=== PATIENT | female | born 1975 | race Caucasian/White ===

== ENCOUNTER 2016-12-21 02:39 | Emergency (ER) | payer SELFPAY ==
[2016-12-21] MEDS ORDERED: DIAZEPAM INJ 10 MG/2 ML DISP.SYRIN IV ONE (03:02)
[2016-12-21] MEDS ORDERED: NORMAL SALINE 1000 ML 1,000 ML IV ONE (03:03)
--- NOTE | 2016-12-21 03:07 | ER Document Report ---
ED General - General TRAVEL OUTSIDE OF THE [place] IN LAST 30 DAYS: No <HUYEN NATARAJAN - Last Filed: 12/21/16 05:42> <YOVANY AMAYA - Last Filed: 12/21/16 10:13> - General Chief Complaint: Probable Seizure Stated Complaint: POSSIBLE SEIZURE Notes: Patient is a 41-year-old female who presents with complaints of possible seizure. Patient says she is in the bathroom and went onto the floor. She she thinks that she had a seizure. Patient says she felt just like she did back in August when she had a fever after her call withdrawal. She does not have a seizure disorder. She is prescribed Ativan. She's on no seizure medications. Patient says that she does go to [facility]. Patient says she was doing well until this weekend when she lost her best friend who of a heroin overdose. She says she drank this weekend. Today she only had 2 glasses of wine. She thinks she may have had a seizure due to withdrawal. No loss of bowel control. Patient thinks she bit her tongue. Patient is currently asking for Ativan. (HUYEN NATARAJAN) - Related Data Allergies/Adverse Reactions: No Known Allergies Allergy (Verified 12/21/16 05:15) Past Medical History - Social History Smoking Status: Unknown if Ever Smoked Frequency of alcohol use: Heavy Drug Abuse: None Family History: None, CAD, Other - Alcoholism Pulmonary Medical History: Denies: Hx Asthma, Hx Bronchitis Endocrine Medical History: Denies: Hx Diabetes Mellitus Type 1 Psychiatric Medical History: Reports: Hx Anxiety - Alcoholism, Hx Depression - with anxiety - Immunizations Hx Diphtheria, Pertussis, Tetanus Vaccination: Yes <HUYEN NATARAJAN - Last Filed: 12/21/16 05:42> Review of Systems <HUYEN NATARAJAN - Last Filed: 12/21/16 05:42> <YOVANY AMAYA - Last Filed: 12/21/16 10:13> - Review of Systems Notes: My Normal Review Basic REVIEW OF SYSTEMS: CONSTITUTIONAL : Denies fever, chills, or sweats. Denies recent illness. EENT: Denies eye, ear, throat, or mouth pain or symptoms. Denies nasal or sinus congestion. CARDIOVASCULAR: Denies chest pain. RESPIRATORY: Denies cough, cold, or chest congestion. Denies shortness of breath, difficulty breathing, or wheezing. GASTROINTESTINAL: Denies abdominal pain. Denies nausea, vomiting, or diarrhea. Denies constipation. Last BM: MUSCULOSKELETAL: Denies neck or back pain or joint pain or swelling. SKIN: Denies rash or skin lesions. HEMATOLOGIC : Denies easy bruising or bleeding. NEUROLOGICAL: Possible seizure PSYCHIATRIC: Admits to anxiety. ALL OTHER SYSTEMS REVIEWED AND NEGATIVE. (HUYEN NATARAJAN) Physical Exam <HUYEN NATARAJAN - Last Filed: 12/21/16 05:42> <YOVANY AMAYA - Last Filed: 12/21/16 10:13> - Vital signs Vitals: Temp 98 F 12/21/16 02:39 - Notes Notes: General Appearance: Well nourished, alert, cooperative, no acute distress, no obvious discomfort. Very anxious. Vitals: reviewed, See vital signs table. Head: no swelling or tenderness to the head Eyes: PERRL, EOMI, Conjuctiva clear Mouth: No decreasd moisture. I do not see a bite saundra on her tongue. Neck: Supple, no neck tenderness, No thyromegaly Lungs: No wheezing, No rales, No rhonci, No accessory muscle use, good air exchange bilaterally. Heart: Tachycardic rate, Regular rythm, No murmur, no rub Abdomen: Normal BS, soft, No rigidity, No abdominal tenderness, No guarding, no rebound, no abdominal masses, no organomegaly Extremities: strength 5/5 in all extremities, good pulses in all extremities, no swelling or tenderness in the extremities, no edema. Skin: warm, dry, appropriate color, no rash Neuro: speech clear, oriented x 3, normal affect, responds appropriately to questions. Cranial nerves 2-12 are intact. Distal sensation intact. Patient moves all extremities without difficulty. (HUYEN NATARAJAN) Course - Laboratory Result Diagrams: 12/21/16 03:08 12/21/16 03:08 <HUYEN NATARAJAN - Last Filed: 12/21/16 05:42> - Laboratory Result Diagrams: 12/21/16 03:08 12/21/16 03:08 <YOVANY AMAYA - Last Filed: 12/21/16 10:13> - Re-evaluation Re-evalutation: 12/21/16 05:42 Patient's alcohol level came back very high. She obviously is not going for a new drop. Things unlike she had a seizure. She had no evidence of tongue biting on exam. No loss urinary retention. No action witnessed a seizure. Patient was apparently awake during part of seizure quadrant herself which would be typical. Paramedics arrived she was never postictal. She continues as for Ativan. I informed her that she would not begin Ativan as she is not having withdrawal. She is anxious. I will do gabapentin to help prevent her from going into withdrawal. I think this is more appropriate for her. We will continue monitor the patient until she is clinically sober to be discharged home. She'll be discharged on a gabapentin taper. Patient will be encouraged return to ER immediately if she has any seizures, surgery depression or suicidal thoughts, or if she has any further concerns. (HUYEN NATARAJAN) 12/21/16 10:11 Care similar this physician at shift change had a 600. Patient on examination at 10 AM reports feeling much better she is ambulated in the department without assistance without difficulty. On examination chest is clear to auscultation bilateral breath sounds equal heart regular rate and rhythm without murmur abdomen soft and nontender external is Cayden plus pulses neuro patient awake alert mentating clearly answers questions appropriately speech is clear public speaker strength 5 out of 5 equal both upper tremors motor function 5 out of 5 equal both lower extremities. Patient is safe for discharge with outpatient follow- up and gabapentin as previously described (YOVANY AMAYA) - Vital Signs Vital signs: Temp Pulse Resp BP Pulse Ox 98 F 13 114/80 96 12/21/16 02:39 12/21/16 03:08 12/21/16 08:00 12/21/16 08:00 - Laboratory Laboratory results interpreted by me: 12/21/16 12/21/16 03:08 03:08 WBC 10.8 H RDW 15.6 H Absolute Lymphocytes 4.8 H Creatinine 0.49 L AST 89 H Total Protein 8.3 H Serum Alcohol 353 H* Discharge <HUYEN NATARAJAN - Last Filed: 12/21/16 05:42> <YOVANY AMAYA - Last Filed: 12/21/16 10:13> - Discharge Clinical Impression: Alcohol abuse Condition: Stable Disposition: HOME, SELF-CARE Additional Instructions: PLease take the Gabapentin as prescribed to help prevent withdrawls. Please return to the ER if you feel that you are having withdrawl symptoms despite taking the Gabapentin. PLease return to [facility] ER immediately if you are having thoughts of suicide or worsening depression. Please follow up with your doctor in 2 days for reevaluation. Please continue to follow with AA for help with alcohol use. Prescriptions: Gabapentin 300 mg PO ASDIR PRN #24 capsule PRN Reason: Referrals: [facility] [Provider Group] - Follow up in 3-5 days
[2016-12-21 03:17] LABS: ABSOLUTE LYMPHOCYTES (AUTO) 4.8 10^3/uL (0.5-4.7); ABSOLUTE MONOCYTES (AUTO) 0.6 10^3/uL (0.1-1.4); ABSOLUTE NEUT (AUTO) 5.4 10^3/uL (1.7-8.2); BASOPHILS % (AUTO) 0.4 % (0-2); EOSINOPHILS % (AUTO) 0.3 % (0-6); HEMOGLOBIN 13.8 g/dL (12.0-15.5); HGB HCT DIFFERENCE 1.4; LYMPHOCYTES % (AUTO) 43.9 % (13-45); MEAN CORPUSCULAR HEMOGLOBIN 31.1 pg (27.0-33.4); MEAN CORPUSCULAR HGB CONC 34.6 g/dL (32.0-36.0); MEAN CORPUSCULAR VOLUME 90 fl (80-97); MONOCYTES % (AUTO) 5.4 % (3-13); RED BLOOD COUNT 4.45 10^6/uL (3.72-5.28); RED CELL DISTRIBUTION WIDTH 15.6 % (11.5-14.0); WHITE BLOOD COUNT 10.8 10^3/uL (4.0-10.5)
[2016-12-21 03:38] LABS: ALANINE AMINOTRANSFERASE 36 U/L (9-52); ALBUMIN 4.4 g/dL (3.5-5.0); ALKALINE PHOSPHATASE 115 U/L (38-126); ANION GAP 19 (5-19); ASPARTATE AMINO TRANSFERASE 89 U/L (14-36); BILIRUBIN,DIRECT 0.4 mg/dL (0.0-0.4); BILIRUBIN,TOTAL 0.7 mg/dL (0.2-1.3); BLOOD UREA NITROGEN 13 mg/dL (7-20); CALCIUM 8.5 mg/dL (8.4-10.2); CARBON DIOXIDE 25 mmol/L (22-30); CHLORIDE 101 mmol/L (98-107); CREATININE RESULT 0.49 mg/dL (0.52-1.25); GLUCOSE 98 mg/dL (75-110); MAGNESIUM 2.2 mg/dL (1.6-2.3); POTASSIUM 4.3 mmol/L (3.6-5.0); SODIUM 144.8 mmol/L (137-145); TOTAL PROTEIN 8.3 g/dL (6.3-8.2)
[2016-12-21] MEDS ORDERED: GABAPENTIN 300 MG CAPSULE PO ONE ×2 (03:53→11:45)
[2016-12-21 04:10] LABS: ALCOHOL 353 mg/dL (NONE DETECTED)
[2016-12-21 10:29] VITALS: BP 130/91
[2016-12-21] MEDS ORDERED: GABAPENTIN 300 MG CAPSULE PO SCH ×2 (10:45→11:45)
== END 2016-12-21 10:29 | disposition home or self-care (01) ==
LOC: ER 02:39
DX: F10.10 Alcohol abuse, uncomplicated (principal)
CPT/HCPCS: 99284; 96374; 36415; 80307; 83735; 85025; 80053; 70450; J3360; J7030

== ENCOUNTER 2018-07-27 02:21 | Emergency (ER) | payer SELFPAY ==
--- NOTE | 2018-07-27 02:52 | ER Document Report ---
ED General - General Stated Complaint: IVC WITH PAPERS Time Seen by Provider: 07/27/18 02:34 Notes: Patient is a 43-year-old female is brought in after being placed on IVC paperwork. Current IVC paperwork she texted her boyfriend saying that she was going to kill herself. She then apparently also mentioned that she was going to have her boyfriend killed. Patient herself she says that she gets very upset and has a stressful time and try to manage her stress reaction whenever her boyfriend has a PTSD episode. She denies being suicidal making suicidal threats. She also denies any alcohol use at all tonight however smells like alcohol. 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 TRAVEL OUTSIDE OF THE [place] IN LAST 30 DAYS: No - Related Data Allergies/Adverse Reactions: No Known Allergies Allergy (Verified 03/01/18 06:03) Past Medical History - Social History Smoking Status: Unknown if Ever Smoked Frequency of alcohol use: recent history of heavy alcohol use. Drug Abuse: None Family History: CAD, Other - Alcoholism Pulmonary Medical History: Denies: Hx Asthma, Hx Bronchitis Neurological Medical History: Denies: Hx Seizures Endocrine Medical History: Denies: Hx Diabetes Mellitus Type 1, Hx Hyperthyroidism, Hx Hypothyroidism Renal/ Medical History: Denies: Hx Peritoneal Dialysis GI Medical History: Denies: Hx Crohn's Disease, Hx Ulcerative Colitis Musculoskeletal Medical History: Denies Hx Fibromyalgia, Denies Hx Gout Skin Medical History: Denies Hx Psoriasis Psychiatric Medical History: Reports: Hx Anxiety - Alcoholism, Hx Depression - with anxiety Traumatic Medical History: Denies: Hx Gunshot Wound, Hx Traumatic Brain Injury Infectious Medical History: Denies: Hx C-Diff - Immunizations Hx Diphtheria, Pertussis, Tetanus Vaccination: Yes Review of Systems - Review of Systems Notes: My Normal Review Basic REVIEW OF SYSTEMS: CONSTITUTIONAL : Denies fever, chills, or sweats. Denies recent illness. EENT: Denies eye, ear, throat, or mouth pain or symptoms. Denies nasal or sinus congestion. CARDIOVASCULAR: Denies chest pain. RESPIRATORY: Denies cough, cold, or chest congestion. Denies shortness of breath, difficulty breathing, or wheezing. GASTROINTESTINAL: Denies abdominal pain. Denies nausea, vomiting, or diarrhea. Denies constipation. Last BM: MUSCULOSKELETAL: Denies neck or back pain or joint pain or swelling. SKIN: Denies rash or skin lesions. NEUROLOGICAL: Denies altered mental status or loss of consciousness. Denies headache. Denies weakness or paralysis or loss of use of either side. Denies problems with gait or speech. Denies sensory or motor loss. PSYCHIATRIC: Anxiety. Allergic recent suicide threat. ALL OTHER SYSTEMS REVIEWED AND NEGATIVE. Physical Exam - Vital signs Vitals: Temp Pulse Resp BP Pulse Ox 97.5 F 86 20 99/61 L 95 07/27/18 02:30 07/27/18 02:30 07/27/18 02:30 07/27/18 02:30 07/27/18 02:30 - Notes Notes: General Appearance: Well nourished, alert, cooperative, no acute distress, no obvious discomfort. Vitals: reviewed, See vital signs table. Head: no swelling or tenderness to the head Eyes: PERRL, EOMI, Conjuctiva clear Lungs: No wheezing, No rales, No rhonci, No accessory muscle use, good air exchange bilaterally. Heart: Normal rate, Regular rythm, No murmur, no rub Abdomen: Normal BS, soft, No rigidity, No abdominal tenderness, No guarding, no rebound, no abdominal masses, no organomegaly Extremities: strength 5/5 in all extremities, good pulses in all extremities, no swelling or tenderness in the extremities, no edema. Skin: warm, dry, appropriate color, no rash Neuro: speech clear, oriented x 3, hyper and almost manic type of affect, responds appropriately to most questions. Cranial nerves II through XII are intact. Patient moves all extremities without difficulty. Course - Re-evaluation Re-evalutation: 07/27/18 06:45 Patient denies suicidal thoughts however she also was truthful about certain things such as saying that she drank no alcohol tonight. Obviously that is not true being that her alcohol level is 407. Patient will be medically stable for psychiatric transfer if necessary once her alcohol level is down to normal and she is showing no signs of withdrawal. Patient will have to be watched closely for possible signs of withdrawal being the suspected that she Regular basis. Mental health has been consulted for evaluation. Dictation of this chart was performed using voice recognition software; therefore, there may be some unintended grammatical errors. - Vital Signs Vital signs: Temp Pulse Resp BP Pulse Ox 97.5 F 86 20 99/61 L 95 07/27/18 02:30 07/27/18 02:30 07/27/18 02:30 07/27/18 02:30 07/27/18 02:30 - Laboratory Result Diagrams: 07/27/18 02:40 07/27/18 02:40 Laboratory results interpreted by me: 07/27/18 07/27/18 02:40 02:40 WBC 12.1 H RDW 14.5 H Abs Lymphs (Manual) 5.7 H Sodium 147.7 H Salicylates < 1.0 L Acetaminophen < 10 L Serum Alcohol 407 H* - EKG Interpretation by Me Additional EKG results interpreted by me: 07/27/18 02:45 EKG is reviewed and interpreted by me. EKG shows sinus tachycardia with a rate of [address] segment elevation or depression. No ischemic T wave inversions. TN interval, QRS duration, QT intervals are within normal range. Old EKG for comparison is from March 01, 2018.
[2018-07-27 03:02] LABS: HEMATOCRIT 38.7 % (36.0-47.0); HEMOGLOBIN 13.3 g/dL (12.0-15.5); MEAN CORPUSCULAR HEMOGLOBIN 31.8 pg (27.0-33.4); MEAN CORPUSCULAR HGB CONC 34.3 g/dL (32.0-36.0); MEAN CORPUSCULAR VOLUME 93 fl (80-97); PLATELET COUNT 322 10^3/uL (150-450); RED BLOOD COUNT 4.17 10^6/uL (3.72-5.28); RED CELL DISTRIBUTION WIDTH 14.5 % (11.5-14.0); WHITE BLOOD COUNT 12.1 10^3/uL (4.0-10.5)
[2018-07-27 03:22] LABS: ALANINE AMINOTRANSFERASE 16 U/L (9-52); ALBUMIN 4.7 g/dL (3.5-5.0); ALKALINE PHOSPHATASE 58 U/L (38-126); ANION GAP 18 (5-19); ASPARTATE AMINO TRANSFERASE 25 U/L (14-36); BILIRUBIN,DIRECT 0.2 mg/dL (0.0-0.4); BILIRUBIN,TOTAL 0.2 mg/dL (0.2-1.3); BLOOD UREA NITROGEN 14 mg/dL (7-20); CARBON DIOXIDE 24 mmol/L (22-30); CHLORIDE 106 mmol/L (98-107); GLUCOSE 95 mg/dL (75-110); POTASSIUM 4.4 mmol/L (3.6-5.0); SODIUM 147.7 mmol/L (137-145); TOTAL PROTEIN 7.6 g/dL (6.3-8.2)
[2018-07-27 03:26] LABS: ABSOLUTE LYMPHOCYTES# (MANUAL) 5.7 10^3/uL (0.5-4.7); ABSOLUTE MONOCYTES # (MANUAL) 0.5 10^3/uL (0.1-1.4); ABSOLUTE NEUTROPHILS# (MANUAL) 5.8 10^3/uL (1.7-8.2); BASOPHILS % (MANUAL) 0 % (0-2); EOSINOPHILS % (MANUAL) 1 % (0-6); LYMPHOCYTES % (MANUAL) 43 % (13-45); MONOCYTES % (MANUAL) 4 % (3-13); SEGMENTED NEUTROPHILS % (MAN) 48 % (42-78); TOTAL CELLS COUNTED 100
[2018-07-27 03:27] LABS: PLATELET COMMENT ADEQUATE; RBC MORPHOLOGY COMMENT NORMO-CYTIC/CHROMIC
[2018-07-27 03:32] LABS: ACETAMINOPHEN < 10 ug/mL (10-30); SALICYLATE < 1.0 mg/dL (2.0-20.0)
[2018-07-27 03:34] LABS: ALCOHOL 407 mg/dL (NONE DETECTED)
--- NOTE | 2018-07-27 07:21 | EKG REPORT ---
SEVERITY:- OTHERWISE NORMAL ECG - SINUS TACHYCARDIA : Confirmed by: Ines Amanda 27-Jul-2018 07:20:19
[2018-07-27 07:54] VITALS: BP 110/69
[2018-07-27 07:56] LABS: APPEARANCE,URINE CLEAR; BILIRUBIN,URINE NEGATIVE (NEGATIVE); COLOR,URINE STRAW; GLUCOSE, URINE NEGATIVE (NEGATIVE); KETONES,URINE NEGATIVE (NEGATIVE); LEUKOCYTE ESTERASE,URINE NEGATIVE (NEGATIVE); NITRITE,URINE NEGATIVE (NEGATIVE); PROTEIN,URINE NEGATIVE (NEGATIVE); URINE SPECIFIC GRAVITY 1.008; UROBILINOGEN,URINE NEGATIVE mg/dL (<2.0)
[2018-07-27 08:05] LABS: URINE AMPHETAMINES SCREEN NEGATIVE; URINE BARBITURATES SCREEN NEGATIVE; URINE BENZODIAZEPINES SCREEN NEGATIVE; URINE COCAINE SCREEN NEGATIVE; URINE MARIJUANA (THC) SCREEN NEGATIVE; URINE METHADONE SCREEN NEGATIVE; URINE PHENCYCLIDINE SCREEN NEGATIVE
--- NOTE | 2018-07-27 09:48 | ER Document Report ---
Doctor's Note Notes: 07/27/18 09:47 Rounds: Chart reviewed and patient interviewed. Patient is being evaluated for suicidal thoughts. Patient says she did not intend to kill herself or harm herself. She has problems dealing with her significant other and sometimes drinks too much. EtOH was 407, so patient is still under the influence of alcohol. Only other significant lab finding was a white count of 12,100 with predominant lymphocytes, 43% lymphs and 4% atypical lymphs. No fever and no evidence of any infectious processes. Vital signs are all essentially normal. Patient is able to ambulate well. Mental health has indicated that they would discharge the patient to the care of her mother if she would come pick her up. Patient appears to be medically stable for transfer or discharge. Rosmery Heath MD
== END 2018-07-27 10:53 | disposition home or self-care (01) ==
LOC: ER 02:21
DX: F10.10 Alcohol abuse, uncomplicated (principal); Y90.8 Blood alcohol level of 240 mg/100 ml or more; F41.9 Anxiety disorder, unspecified; Z81.1 Family history of alcohol abuse and dependence; R00.0 Tachycardia, unspecified
CPT/HCPCS: 36415; 80053; 80307; 81001; 84703; 85025; 93005; 93010; 99284

== ENCOUNTER 2018-11-09 16:41 | Emergency (ER) | payer SELFPAY ==
[2018-11-09 17:05] VITALS: BP 124/90
--- NOTE | 2018-11-09 17:35 | ER Document Report ---
Doctor's Note Notes: 11/09/18 17:35 Patient eloped prior to me seeing her. I have asked security to search the parking lot to see if she is still around requiring medical management.
[2018-11-09 17:41] LABS: ABSOLUTE LYMPHOCYTES (AUTO) 2.6 10^3/uL (0.5-4.7); ABSOLUTE MONOCYTES (AUTO) 0.3 10^3/uL (0.1-1.4); ABSOLUTE NEUT (AUTO) 4.2 10^3/uL (1.7-8.2); BASOPHILS % (AUTO) 0.3 % (0-2); HEMATOCRIT 38.1 % (36.0-47.0); HEMOGLOBIN 13.2 g/dL (12.0-15.5); LYMPHOCYTES % (AUTO) 36.4 % (13-45); MEAN CORPUSCULAR HEMOGLOBIN 31.5 pg (27.0-33.4); MEAN CORPUSCULAR HGB CONC 34.6 g/dL (32.0-36.0); MEAN CORPUSCULAR VOLUME 91 fl (80-97); MONOCYTES % (AUTO) 3.9 % (3-13); PLATELET COUNT 218 10^3/uL (150-450); RED BLOOD COUNT 4.19 10^6/uL (3.72-5.28); RED CELL DISTRIBUTION WIDTH 13.3 % (11.5-14.0); SEGMENTED NEUTROPHILS % (AUTO) 59.4 % (42-78); TOTAL CELLS COUNTED % (AUTO) 100 %; WHITE BLOOD COUNT 7.1 10^3/uL (4.0-10.5)
[2018-11-09 17:47] LABS: ALANINE AMINOTRANSFERASE 20 U/L (9-52); ALBUMIN 4.9 g/dL (3.5-5.0); ALKALINE PHOSPHATASE 60 U/L (38-126); ANION GAP 14 (5-19); ASPARTATE AMINO TRANSFERASE 38 U/L (14-36); BILIRUBIN,DIRECT 0.2 mg/dL (0.0-0.4); BILIRUBIN,TOTAL 0.7 mg/dL (0.2-1.3); BLOOD UREA NITROGEN 13 mg/dL (7-20); CALCIUM 9.1 mg/dL (8.4-10.2); CARBON DIOXIDE 28 mmol/L (22-30); CHLORIDE 103 mmol/L (98-107); GLUCOSE 110 mg/dL (75-110); POTASSIUM 4.2 mmol/L (3.6-5.0); SODIUM 144.5 mmol/L (137-145); TOTAL PROTEIN 8.3 g/dL (6.3-8.2)
[2018-11-09 18:33] LABS: ACETAMINOPHEN < 10 ug/mL (10-30); SALICYLATE < 1.0 mg/dL (2.0-20.0)
[2018-11-09 18:34] LABS: ALCOHOL 427 mg/dL (NONE DETECTED)
== END 2018-11-09 17:40 | disposition left against medical advice (07) ==
LOC: ER 16:41
DX: Z53.21 Procedure and treatment not carried out due to patient leaving prior to being seen by health care provider (principal)
CPT/HCPCS: 36415; 80053; 80307; 85025; 99281

== ENCOUNTER 2018-11-09 20:19 | Emergency (ER) | payer SELFPAY | END 2018-11-09 20:50 | disposition left against medical advice (07) | LOC: ER 20:19 | DX: Z53.21 Procedure and treatment not carried out due to patient leaving prior to being seen by health care provider (principal) ==

== ENCOUNTER 2018-11-13 17:20 | Emergency (ER) | payer SELFPAY ==
[2018-11-13 17:46] VITALS: BP 121/94
--- NOTE | 2018-11-13 18:41 | ER Document Report ---
ED General - General Chief Complaint: ETOH Abuse Stated Complaint: ETOH Time Seen by Provider: 11/13/18 18:20 Cannot obtain history due to: Intoxicated Notes: Patient is a 43-year-old female with past medical history of alcohol and polysubstance abuse presents for intoxication by EMS. Apparently was in a restaurant, was noted to be very intoxicated, EMS was called. On arrival patient does wake up to loud voice. States that she drank too much today but denies any other complaints. States she would just like to sober up and go home. Denies any intent to harm herself. History is otherwise limited secondary to patient's intoxication. TRAVEL OUTSIDE OF THE [place] IN LAST 30 DAYS: No - Related Data Allergies/Adverse Reactions: No Known Allergies Allergy (Verified 03/01/18 06:03) Past Medical History - General Information source: Patient, Emergency Med Personnel, [facility] Records Cannot obtain history due to: Intoxicated - Social History Smoking Status: Current Every Day Smoker Frequency of alcohol use: Heavy Drug Abuse: Prescription drugs Family History: CAD, Other - Alcoholism Patient has suicidal ideation: No Patient has homicidal ideation: No Pulmonary Medical History: Denies: Hx Asthma, Hx Bronchitis Neurological Medical History: Reports: Hx Seizures Endocrine Medical History: Denies: Hx Diabetes Mellitus Type 1, Hx Hyperthyroidism, Hx Hypothyroidism Renal/ Medical History: Denies: Hx Peritoneal Dialysis GI Medical History: Denies: Hx Crohn's Disease, Hx Ulcerative Colitis Musculoskeletal Medical History: Denies Hx Fibromyalgia, Denies Hx Gout Skin Medical History: Denies Hx Psoriasis Psychiatric Medical History: Reports: Hx Anxiety - Alcoholism, Hx Depression - with anxiety Traumatic Medical History: Denies: Hx Gunshot Wound, Hx Traumatic Brain Injury Infectious Medical History: Denies: Hx C-Diff - Immunizations Hx Diphtheria, Pertussis, Tetanus Vaccination: Yes Review of Systems - Review of Systems Notes: Constitutional: Negative for fever. HENT: Negative for sore throat. Eyes: Negative for visual changes. Cardiovascular: Negative for chest pain. Respiratory: Negative for shortness of breath. Gastrointestinal: Negative for abdominal pain, vomiting or diarrhea. Genitourinary: Negative for dysuria. Musculoskeletal: Negative for back pain. Skin: Negative for rash. Neurological: Negative for headaches, weakness or numbness. 10 point ROS negative except as marked above and in HPI. Physical Exam - Vital signs Vitals: Temp Pulse Resp BP Pulse Ox 98.4 F 104 H 14 121/94 H 96 11/13/18 17:30 11/13/18 17:30 11/13/18 17:30 11/13/18 17:30 11/13/18 17:30 Interpretation: Tachycardic Notes: PHYSICAL EXAMINATION: GENERAL: Well-appearing, intoxicated in no distress HEAD: Atraumatic, normocephalic. EYES: Pupils equal round and reactive to light, extraocular movements intact, sclera anicteric, conjunctiva are normal. ENT: nares patent, oropharynx clear without exudates. Moist mucous membranes. NECK: Normal range of motion, supple without lymphadenopathy LUNGS: Breath sounds clear to auscultation bilaterally and equal. No wheezes rales or rhonchi. HEART: Regular rate and rhythm without murmurs ABDOMEN: Soft, nontender, normoactive bowel sounds. No guarding, no rebound. No masses appreciated. EXTREMITIES: Normal range of motion, no pitting or edema. No cyanosis. NEUROLOGICAL: No focal neurological deficits. Moves all extremities spon taneously and on command. PSYCH: Intoxicated SKIN: Warm, Dry, normal turgor, no rashes or lesions noted. Course - Re-evaluation Re-evalutation: 11/13/18 18:40 Patient presents with acute alcohol intoxication without any additional acute complaints. Admits to heavy alcohol use today. No evidence of trauma on exam. Patient was monitored in the emergency department until they were clinically sober. Able to ambulate and talking clear sentences prior to discharge. Tolerating oral intake without difficulty. The patient has been instructed to seek help for alcohol detoxification. Will discharge and return precautions and follow-up recommendations. - Vital Signs Vital signs: Temp Pulse Resp BP Pulse Ox 98.4 F 104 H 14 121/94 H 96 11/13/18 17:30 11/13/18 17:30 11/13/18 17:30 11/13/18 17:30 11/13/18 17:30 Discharge - Discharge Clinical Impression: Alcohol intoxication Qualifiers: Complication of substance-induced condition: uncomplicated Qualified Code(s): F10.920 - Alcohol use, unspecified with intoxication, uncomplicated Condition: Good Disposition: HOME, SELF-CARE Additional Instructions: You were seen in the emergency department today for being drunk. Being seen in the emergency department after drinking alcohol is a serious indicator that you have a problem with alcohol. You should seek help with the attached resources for your problem drinking. Please return to the emergency room immediately if you experience any concerning symptoms including high fevers, severe headache, chest pain, difficulty breathing, abdominal pain, slurred speech, numbness or weakness in your arms or legs, or any other symptom that concerns you.
== END 2018-11-13 20:45 | disposition home or self-care (01) ==
LOC: ER 17:20
DX: F10.129 Alcohol abuse with intoxication, unspecified (principal); F17.200 Nicotine dependence, unspecified, uncomplicated
CPT/HCPCS: 99284

== ENCOUNTER 2019-04-29 15:30 | Emergency (ER) | payer SELFPAY ==
--- NOTE | 2019-04-29 16:12 | ER Document Report ---
ED Medical Screen (RME) - General Chief Complaint: ETOH Abuse Stated Complaint: DETOX Time Seen by Provider: 04/29/19 15:56 Mode of Arrival: Wheelchair Information source: Patient, Friend - AA sponsor Balbir Ellison [phone] Notes: Patient is a 43-year-old female with past medical history of severe alcoholism and anxiety presenting to the emergency department acutely intoxicated. Patient is brought into the emergency department by her estranged boyfriend and her AA sponsor Balbir Ellison [phone]. The AA sponsor tells me that the patient was suicidal 2 days ago stating that if she had a gun she would kill herself. There is an alleged recent break-up with her boyfriend who is currently in the lobby. Patient reports no alcohol use, she denies any suicidal or homicidal ideation. She is very tearful and is trying to get up out of the wheelchair, she is very wobbly on her feet, currently she is a danger to herself. She was brought straight to a main side bed. Orders initiated. I have greeted and performed a rapid initial assessment of this patient. A comprehensive ED assessment and evaluation of the patient, analysis of test results and completion of the medical decision making process will be conducted by additional ED providers. I have specifically instructed the patient or family members with the patient to immediately return to any nursing staff should anything change in the patient's condition or with their chief complaint. This medical record was dictated with voice recognizing software. There may be grammatical, syntax errors that are unintended. TRAVEL OUTSIDE OF THE [place] IN LAST 30 DAYS: No - Related Data Allergies/Adverse Reactions: No Known Allergies Allergy (Verified 04/29/19 15:35) Past Medical History - Social History Frequency of alcohol use: Heavy Drug Abuse: None Pulmonary Medical History: Denies: Hx Asthma, Hx Bronchitis Neurological Medical History: Reports: Hx Seizures Endocrine Medical History: Denies: Hx Diabetes Mellitus Type 1, Hx Hyperthyroidism, Hx Hypothyroidism Renal/ Medical History: Denies: Hx Peritoneal Dialysis GI Medical History: Denies: Hx Crohn's Disease, Hx Ulcerative Colitis Musculoskeltal Medical History: Denies Hx Fibromyalgia, Denies Hx Gout Skin Medical History: Denies Hx Psoriasis Psychiatric Medical History: Reports: Hx Anxiety - Alcoholism, Hx Depression - with anxiety Traumatic Medical History: Denies: Hx Gunshot Wound, Hx Traumatic Brain Injury Infectious Medical History: Denies: Hx C-Diff - Immunizations Hx Diphtheria, Pertussis, Tetanus Vaccination: Yes History of Influenza Vaccine for 06/2017 - 11/2017 Season: Unknown Physical Exam - Vital signs Vitals: Temp Pulse Resp BP Pulse Ox 98.3 F 95 18 120/90 H 94 04/29/19 15:38 04/29/19 15:38 04/29/19 15:38 04/29/19 15:38 04/29/19 15:38 Course - Vital Signs Vital signs: Temp Pulse Resp BP Pulse Ox 98.3 F 95 18 120/90 H 94 04/29/19 15:38 04/29/19 15:38 04/29/19 15:38 04/29/19 15:38 04/29/19 15:38
--- NOTE | 2019-04-29 16:24 | ER Document Report ---
ED General - General Chief Complaint: ETOH Abuse Stated Complaint: DETOX Time Seen by Provider: 04/29/19 15:56 Primary Care Provider: [facility] [Provider Group] - Follow up as needed Mode of Arrival: Wheelchair TRAVEL OUTSIDE OF THE [place] IN LAST 30 DAYS: No - HPI Notes: Patient is a 43-year-old female with a history of anxiety, alcohol abuse, and polysubstance abuse who presents with acute intoxication. Patient states that she had too much to drink today and her ex bf brought her in. She has no SI/HI. No visual or auditory hallucinations. Patient has been able to eat and drink without difficulty. She is urinating normally and having normal bowel movements. Denies recent illness. Denies drug allergies. Denies any headache, fever, injury, neck pain, URI, sore throat, chest pain, palpitations, syncope, cough, shortness of breath, wheeze, dyspnea, abdominal pain, nausea/vomiting/diarrhea, urinary retention, dysuria, hematuria, loss of control of bowel or bladder, numbness/tingling, muscle paralysis/weakness, or rash. Interview with sponsor, Balbir, states that she has been sober for 6 months, but relapsed a couple days ago. Pt and Balbir have been talking and patient is open to going to detox, but would like to sober up here in the ED for now. - Related Data Allergies/Adverse Reactions: No Known Allergies Allergy (Verified 04/29/19 15:35) Past Medical History - General Information source: Patient, Friend - AA sponsor Balbir Ellison [phone] - Social History Smoking Status: Former Smoker Frequency of alcohol use: Heavy Drug Abuse: None Family History: CAD, Other - Alcoholism Patient has suicidal ideation: No Patient has homicidal ideation: No Pulmonary Medical History: Denies: Hx Asthma, Hx Bronchitis Neurological Medical History: Reports: Hx Seizures Endocrine Medical History: Denies: Hx Diabetes Mellitus Type 1, Hx Hyperthyroidism, Hx Hypothyroidism Renal/ Medical History: Denies: Hx Peritoneal Dialysis GI Medical History: Denies: Hx Crohn's Disease, Hx Ulcerative Colitis Musculoskeletal Medical History: Denies Hx Fibromyalgia, Denies Hx Gout Skin Medical History: Denies Hx Psoriasis Psychiatric Medical History: Reports: Hx Anxiety - Alcoholism, Hx Depression - with anxiety Traumatic Medical History: Denies: Hx Gunshot Wound, Hx Traumatic Brain Injury Infectious Medical History: Denies: Hx C-Diff - Immunizations Hx Diphtheria, Pertussis, Tetanus Vaccination: Yes Review of Systems - Review of Systems -: Yes All other systems reviewed and negative - with regard to pt's intox. Physical Exam - Vital signs Vitals: Temp Pulse Resp BP Pulse Ox 98.3 F 95 18 120/90 H 94 04/29/19 15:38 04/29/19 15:38 04/29/19 15:38 04/29/19 15:38 04/29/19 15:38 - Notes Notes: PHYSICAL EXAMINATION: GENERAL: Well-appearing, well-nourished and in no acute distress, clearly intoxicated (talkative, super happy, mild slurring of speech). A&Ox4. Answers questions appropriately. HEAD: Atraumatic, normocephalic. Non-tender. EYES: Pupils equal round and reactive to light, extraocular movements intact, sclera anicteric, conjunctiva are normal. No nystagmus. ENT: EAC clear b/l. TM's intact b/l without erythema, fluid, or perforation. Nares patent and without discharge. oropharynx clear without exudates. No tonsilar hypertrophy or erythema. Moist mucous membranes. No sinus tenderness. NECK: Normal range of motion, supple without lymphadenopathy. No rigidity/meningismus. No midline tenderness. LUNGS: Breath sounds clear to auscultation bilaterally and equal. No wheezes rales or rhonchi. HEART: Regular rate and rhythm without murmurs, rubs, gallops. ABDOMEN: Soft, nontender, nondistended abdomen. No guarding, no rebound. Normal bowel sounds present. No CVA tenderness bilaterally. Musculoskeletal: Ext b/l: FROM to passive/active. Strength 5+/5. No deficits noted. No bony tenderness of extremities. Extremities: No cyanosis, clubbing, or edema b/l. Peripheral pulses 2+. Capillary refill less than 2 seconds. NEUROLOGICAL: GCS 15. Cranial nerves grossly intact. Normal sensory, motor exams. PSYCH: intoxicated SKIN: Warm, Dry, normal turgor, no rashes or lesions noted. Course - Re-evaluation Re-evalutation: 04/29/19 16:47 As reviewed with Balbir and the patient. She is considering detox, but for now wants to sleep and try to sober up. Vitals currently acceptable. No SI/HI. Fluids, meds ordered. 04/29/19 19:50 Patient is an afebrile, well-hydrated, 43-year-old female who presents with acute intoxication of alcohol. Vitals are currently acceptable without significant tachycardia, tachypnea, or hypoxia. PE is otherwise unremarkable. Patient is nontoxic-appearing is able to tolerate p.o. without difficulty. Patient has reviewed with her AA sponsor and family about detox and she is not wanting to do detox at this time. She has no SI/HI or visual/auditory hallucinations. Patient has been able to ambulate without any instability in her gait and appears to build to make decisions for herself. Labs are unremarkable aside from excessive alcohol noted on lab. Her AA sponsor, Balbir, and family are willing to take her home to continue observation at home. They feel competent to build to do this. I reviewed with Dr. Valderrama who is in agreement with dispo/plan as pt will be able to go home with family/sponsor and is able to ambulate and communicate appropriately. Low suspicion for any acute systemic emergent condition at this time. Patient to consider detox upon discharge. Recheck with your PCM next week. Return to the ED with any other worsening/concerning symptoms. Patient/sponsor/family in agreement. - Vital Signs Vital signs: Temp Pulse Resp BP Pulse Ox 98.3 F 95 18 120/90 H 94 04/29/19 15:38 04/29/19 15:38 04/29/19 15:38 04/29/19 15:38 04/29/19 15:38 - Laboratory Result Diagrams: 04/29/19 16:32 04/29/19 16:32 Laboratory results interpreted by me: 04/29/19 04/29/19 04/29/19 16:32 16:32 19:04 WBC 12.2 H Albumin 5.1 H Urine Blood SMALL H Salicylates 1.1 L Acetaminophen < 10 L Serum Alcohol 417 H* Discharge - Discharge Clinical Impression: Acute alcohol intoxication Qualifiers: Complication of substance-induced condition: uncomplicated Qualified Code(s): F10.920 - Alcohol use, unspecified with intoxication, uncomplicated Condition: Stable Disposition: HOME, SELF-CARE Additional Instructions: Maintain adequate fluid and food intake Healthy diet Avoid alcohol consumption motrin if needed Monitor for any worsening symptoms Stop smoking Make sure you are staying hydrated enough to urinate and have normal BM's Recheck with your PCM in 3-5 days I strongly encourage you to consider going to detox* Return to the ED with any worsening symptoms and/or development of fever, headache, changes in behavior/mentation/vision/speech, chest pain, palpitations, syncope, shortness of breath, trouble breathing, abdominal pain, n/v/d, blood in stool/urine, loss of control of bowel/bladder, urinary retention, muscle weakness/paralysis, saddle anesthesia, numbness/tingling, suicidal/homicidal ideations, visual/auditory hallucinations, or other worsening symptoms that are concerning to you. Forms: Elevated Blood Pressure, Smoking Cessation Education Referrals: [facility] [Provider Group] - Follow up as needed
[2019-04-29 16:45] LABS: ABSOLUTE BASOPHILS # (AUTO) 0.1 10^3/uL (0.0-0.2); ABSOLUTE EOSINOPHILS # (AUTO) 0.1 10^3/uL (0.0-0.6); ABSOLUTE LYMPHOCYTES (AUTO) 4.3 10^3/uL (0.5-4.7); ABSOLUTE MONOCYTES (AUTO) 0.4 10^3/uL (0.1-1.4); ABSOLUTE NEUT (AUTO) 7.3 10^3/uL (1.7-8.2); BASOPHILS % (AUTO) 0.4 % (0-2); EOSINOPHILS % (AUTO) 0.5 % (0-6); HEMATOCRIT 40.6 % (36.0-47.0); HEMOGLOBIN 13.7 g/dL (12.0-15.5); LYMPHOCYTES % (AUTO) 35.5 % (13-45); MEAN CORPUSCULAR HEMOGLOBIN 30.2 pg (27.0-33.4); MEAN CORPUSCULAR HGB CONC 33.6 g/dL (32.0-36.0); MEAN CORPUSCULAR VOLUME 90 fl (80-97); MONOCYTES % (AUTO) 3.7 % (3-13); PLATELET COUNT 316 10^3/uL (150-450); RED BLOOD COUNT 4.53 10^6/uL (3.72-5.28); RED CELL DISTRIBUTION WIDTH 13.5 % (11.5-14.0); SEGMENTED NEUTROPHILS % (AUTO) 59.9 % (42-78); TOTAL CELLS COUNTED % (AUTO) 100 %; WHITE BLOOD COUNT 12.2 10^3/uL (4.0-10.5)
[2019-04-29] MEDS ORDERED: THIAMINE HCL 100 MG, FOLIC ACID 1 MG in NORMAL SALINE 250 ML IV ONE (16:46)
[2019-04-29] MEDS ORDERED: ONDANSETRON HCL INJ/PF 4 MG/2 ML SDV IV ONE (16:48)
[2019-04-29 17:00] LABS: ALBUMIN 5.1 g/dL (3.5-5.0); ALKALINE PHOSPHATASE 60 U/L (38-126); ANION GAP 14 (5-19); ASPARTATE AMINO TRANSFERASE 34 U/L (14-36); BILIRUBIN,DIRECT 0.2 mg/dL (0.0-0.4); BILIRUBIN,TOTAL 0.5 mg/dL (0.2-1.3); BLOOD UREA NITROGEN 15 mg/dL (7-20); CALCIUM 8.8 mg/dL (8.4-10.2); CARBON DIOXIDE 26 mmol/L (22-30); CHLORIDE 101 mmol/L (98-107); GLUCOSE 89 mg/dL (75-110); POTASSIUM 4.2 mmol/L (3.6-5.0); SALICYLATE 1.1 mg/dL (2.0-20.0)
[2019-04-29] MEDS: NORMAL SALINE 1000 ML 1,000 ML IV PRN ×2 (17:00→17:01)
[2019-04-29] MEDS ORDERED: THIAMINE HCL INJ 200 MG/2 ML VIAL ONE (17:07)
[2019-04-29 17:09] LABS: ACETAMINOPHEN < 10 ug/mL (10-30)
[2019-04-29 17:12] LABS: ALCOHOL 417 mg/dL (NONE DETECTED)
[2019-04-29] MEDS ORDERED: FOLIC ACID INJ 5 MG/1 ML 10 ML VIAL ONE (17:14)
[2019-04-29 19:20] LABS: APPEARANCE,URINE CLEAR; BILIRUBIN,URINE NEGATIVE (NEGATIVE); COLOR,URINE STRAW; GLUCOSE, URINE NEGATIVE (NEGATIVE); KETONES,URINE NEGATIVE (NEGATIVE); LEUKOCYTE ESTERASE,URINE NEGATIVE (NEGATIVE); NITRITE,URINE NEGATIVE (NEGATIVE); PROTEIN,URINE NEGATIVE (NEGATIVE); URINE SPECIFIC GRAVITY 1.003; UROBILINOGEN,URINE NEGATIVE mg/dL (<2.0)
[2019-04-29 19:41] LABS: URINE AMPHETAMINES SCREEN NEGATIVE; URINE BARBITURATES SCREEN NEGATIVE; URINE BENZODIAZEPINES SCREEN NEGATIVE; URINE COCAINE SCREEN NEGATIVE; URINE MARIJUANA (THC) SCREEN NEGATIVE; URINE METHADONE SCREEN NEGATIVE; URINE PHENCYCLIDINE SCREEN NEGATIVE
[2019-04-29 20:12] VITALS: BP 106/68
--- NOTE | 2019-04-30 11:40 | EKG REPORT ---
SEVERITY:- NORMAL ECG - SINUS RHYTHM : Confirmed by: Ines Amanda 30-Apr-2019 11:38:59
== END 2019-04-29 19:50 | disposition home or self-care (01) ==
LOC: ER 15:30
DX: F10.120 Alcohol abuse with intoxication, uncomplicated (principal); Z87.891 Personal history of nicotine dependence
CPT/HCPCS: 93005; 99284; 96375; 96365; 36415; 80307 ×4; 85025; 81025; 80053; 81001; 93010; J3490; J3411; J2405; J7030; J7050

== ENCOUNTER → 2020-07-26 | Outpatient (CLI) | payer BC | LOC: OD 16:46 | PROVIDERS: ATTEND Obstetrics & Gynecology | DX: N97.9 Female infertility, unspecified (principal) | CPT/HCPCS: 36415; 83516 ==

== ENCOUNTER → 2020-09-10 | Outpatient (CLI) | payer BC ==
--- NOTE | 2020-09-12 09:32 | RADIOLOGY REPORT (SQ) ---
EXAM DESCRIPTION: HYSTEROSALPINGOGRAM; HYSTERO CATH/INJECTION IMAGES COMPLETED DATE/TIME: 09/10/2020 4:39 pm REASON FOR STUDY: N97.9FEMALE INFERTILITY, UNSPECIFIED; FEMALE INFERTILITY N97.9 FEMALE INFERTILITY , UNSPECIFIED COMPARISON: None. PROCEDURE: PRE-PROCEDURE: Procedure was explained to the patient. She was told to expect cramping du ring the procedure, and possible spotting post procedure. PROCEDURE: The cervix was prepped in sterile fashion. Under direct visual inspection, the cervix was cannulated with the hysterosalpingogram catheter and contrast injected. TECHNIQUE: Temporal fluoroscopic images acquired during the procedure stored to PACS. FLUOROSCOPY TIME: 38 seconds 4 images saved to PACS. LIMITATIONS: None. FINDINGS: UTERUS: Unicornuate with no visualized right horn. There is shift of the uterus to left o f midline. RIGHT ADNEXA: See above. LEFT ADNEXA: Normal size fallopian tube. Free spill of contrast into the peritoneal cavity. POST PROCEDURE: The patient tolerated the procedure with no adverse effects. IMPRESSION: Unicornuate uterus. COMMENT: Renal anomalies such as agenesis are more commonly associated with this Mullerian duct abno rmality. Consider correlation with renal ultrasound. Study performed and interpreted by the radiologist. Quality ID [id number]: Final reports for procedures using fluoroscopy that document radiation exposure johnson brandon, or exposure time and number of fluorographic images (if radiation exposure indices are not avail able) TECHNICAL DOCUMENTATION: JOB ID: [id number] 2010 [email or web address]- All Rights Reserved Reading location - IP/workstation name: [email or web address]
== END ==
LOC: RAD 15:30
PROVIDERS: ATTEND Obstetrics & Gynecology
DX: N97.9 Female infertility, unspecified (principal); Q51.4 Unicornate uterus
CPT/HCPCS: 58340; 74740; 81025

== ENCOUNTER → 2020-09-11 | Outpatient (CLI) | payer BC ==
--- NOTE | 2020-09-12 09:38 | RADIOLOGY REPORT (SQ) ---
EXAM DESCRIPTION: U/S NON-OB PELVIS TV W/O DOP IMAGES COMPLETED DATE/TIME: 09/11/2020 6:24 pm REASON FOR STUDY: (N97.9)FEMALE INFERTILITY, UNSPECIFIED N97.9 FEMALE INFERTILITY, UNSPECIFIED COMPARISON: None. TECHNIQUE: Dynamic and static grayscale images acquired of the pelvis via transvaginal approach and recorded on PACS. Additional selected color Doppler and spectral images recorded. LIMITATIONS: None. FINDINGS: UTERUS: Contour normal. No mass. ENDOMETRIAL STRIPE: 8 mm. Heterogeneous with 5 mm well-circumscribed hyperechoic focus probably foca l fibrosis. CERVIX: Nabothian cysts. RIGHT OVARY AND DOPPLER: Normal size. No worrisome masses. Normal arterial vascular flow without evid ence for torsion. LEFT OVARY AND DOPPLER: Normal size. 2 cm cyst. No worrisome masses. Normal arterial vascular flow without evidence for torsion. FREE FLUID: None noted. OTHER: No other significant finding. MEASUREMENTS: UTERUS: 6.8 x 4.1 x 3.1 cm ENDOMETRIAL STRIPE: 8 mm RIGHT OVARY: 2.5 x 1.7 x 1.6 cm LEFT OVARY: 3.5 x 2.8 x 2.1 cm IMPRESSION: Small area of fibrosis in the endometrial cavity. TECHNICAL DOCUMENTATION: JOB ID: [id number] [employer]- All Rights Reserved Rev-01/28 Reading location - IP/workstation name: [email or web address]
== END ==
LOC: RAD 17:35
PROVIDERS: ATTEND Obstetrics & Gynecology
DX: N97.9 Female infertility, unspecified (principal); N83.292 Other ovarian cyst, left side; N94.89 Other specified conditions associated with female genital organs and menstrual cycle
CPT/HCPCS: 76830